=== PATIENT | male | born 1960 | race Caucasian/White ===

== ENCOUNTER 2017-03-18 15:41 | Inpatient (IN) | payer MEDICARE, MEDICAID ==
[2017-03-18] MEDS ORDERED: Albuterol 0.083% 2.5 MG/3 ML Neb Soln NEB PRN (15:55)
[2017-03-18] MEDS ORDERED: oxyCODONE 5 MG Tab PO PRN (15:55)
[2017-03-18] MEDS ORDERED: Polyethylene Glycol 3350 Powder 17 GM Packet PO PRN (15:55)
[2017-03-18] MEDS ORDERED: Ondansetron 4 MG/2 ML SDV IV PRN (15:55)
[2017-03-18] MEDS ORDERED: Acetaminophen 325 MG Tab PO PRN (15:55)
[2017-03-18] MEDS ORDERED: Magnesium Hydroxide 400 MG/5 ML Susp 30 ML Cup PO PRN (15:55)
[2017-03-18] MEDS ORDERED: Docusate Sodium 100 MG Cap PO PRN (15:55)
[2017-03-18] MEDS ORDERED: Sodium Chloride 0.9% 10 ML Syringe FLUSH PRN (15:55)
[2017-03-18] MEDS: Lactated Ringers 1,000 ML IV SCH (17:13)
[2017-03-18] MEDS: Enoxaparin 40 MG/0.4 ML Syringe SUBCUT SCH (17:13)
[2017-03-18] MEDS: Levofloxacin/Dextrose 5%-Water 750 MG in Premix Bag 1 BAG IV SCH (17:13)
[2017-03-18] MEDS ORDERED: Sodium Chloride 0.9% 100 ML IV SCH (17:15)
[2017-03-18] MEDS ORDERED: Iopamidol 755 Mg/ML 100 ML Bottle IV SCH (17:15)
--- NOTE | 2017-03-18 19:32 | PCM.HP ---
H&P History of Present Illness - General Date of Service: 03/18/17 Admit Problem/Dx: Admission Diagnosis/Problem Admission Diagnosis/Problem Pneumonia Source of Information: Patient, Family, Provider, RN Notes Reviewed History Limitations: Reports: No Limitations - History of Present Illness Initial Comments - Free Text/Narative: Mr. Wisdom is a 56-year-old gentleman with ALS, admitted as a direct admission from the clinic with severe hypoxia and hypercapnia and bilateral pneumonia. His ALS his progress to the point where he has developed significant respiratory compromise as well as difficulty with swallowing. He often has often and choking episodes with eating. He's been seen and followed at [facility] in [place], over the past 2 months they've recommended a trial of BiPAP and based on results of the sleep study he qualifies for use of this. He tried the BiPAP while in [place] and did not feel that he would be able to tolerate it. Over the past 2 days his developed significant fluid retention, was seen and evaluated in the urgent care clinic earlier this afternoon. While there was noted to be hypoxic, blood gases were obtained which showed significant hypoxia and hypercapnia. Chest x-ray was obtained which suggested right lung infiltrate. He has been afebrile and his white blood cell count is within normal range. CT scan has been obtained shortly after admission and shows evidence of bilateral pulmonary infiltrates consistent with pneumonia. CT scan showed no evidence of pulmonary emboli or other potential cause of his respiratory compromise. - Related Data Allergies/Adverse Reactions: Allergies Allergy/AdvReac Type Severity Reaction Status Date / Time No Known Allergies Allergy Verified 07/03/16 09:20 Past Medical History HEENT History: Reports: None Cardiovascular History: Reports: None Respiratory History: Reports: None Gastrointestinal History: Reports: None Genitourinary History: Reports: None Musculoskeletal History: Reports: None Neurological History: Reports: Other (See Below) Other Neuro History: ALS Psychiatric History: Reports: None Endocrine/Metabolic History: Reports: None Hematologic History: Reports: None Immunologic History: Reports: None Oncologic (Cancer) History: Reports: None Dermatologic History: Reports: None - Infectious Disease History Infectious Disease History: Reports: None - Past Surgical History Head Surgeries/Procedures: Reports: None Social & Family History - Family History Family Medical History: Noncontributory - Tobacco Use Smoking Status *Q: Current Every Day Smoker Years of Tobacco use: 30 Packs/Tins Daily: 1 Used Tobacco, but Quit: No Second Hand Smoke Exposure: No - Caffeine Use Caffeine Use: Reports: Coffee - Recreational Drug Use Recreational Drug Use: No H&P Review of Systems - Review of Systems: Review Of Systems: See Below General: Reports: Weakness. Denies: Fever, Chills HEENT: Reports: No Symptoms Pulmonary: Denies: Wheezing, Cough, Sputum, Hemoptysis Cardiovascular: Reports: Edema. Denies: Chest Pain, Palpitations, Dyspnea on Exertion, Orthopnea, PND Gastrointestinal: Reports: No Symptoms Genitourinary: Reports: No Symptoms Musculoskeletal: Reports: No Symptoms Skin: Reports: No Symptoms Psychiatric: Reports: No Symptoms Neurological: Reports: No Symptoms Hematologic/Lymphatic: Reports: No Symptoms Immunologic: Reports: No Symptoms Exam - Exam Exam: See Below - Vital Signs Vital Signs: Last Vital Signs Temp 98.4 F 03/18/17 16:11 Pulse 96 03/18/17 16:11 Resp 26 H 03/18/17 16:11 BP 111/83 03/18/17 16:11 Pulse Ox 96 03/18/17 18:07 Weight: 158 lb 12.8 oz - Exam Quality Assessment: Supplemental Oxygen, DVT Prophylaxis General: Alert, Oriented, Cooperative, Mild Distress HEENT: Conjunctiva Clear, Hearing Intact, Mucosa Moist & [place], Normal Nasal Septum, Posterior Pharynx Clear, Pupils Equal Neck: Supple, Trachea Midline, +2 Carotid Pulse wo Bruit Lungs: Decreased Breath Sounds. No: Crackles, Rales, Rhonchi, Wheezing Cardiovascular: Regular Rate, Regular Rhythm, Normal S1, Normal S2. No: Systolic Murmur, Diastolic Murmur GI/Abdominal Exam: Normal Bowel Sounds, Soft, Non-Tender, No Distention Back Exam: Normal Inspection, Full Range of Motion Extremities: Non-Tender, Pedal Edema Skin: Warm, Dry, Intact Neurological: Sensation Intact, Other (Severe weakness secondary to ALS). No: Normal Speech Neuro Extensive - Mental Status: Alert, Oriented x3, Normal Mood/Affect, Normal Cognition, Memory Intact - Patient Data Lab Results Last 24 hrs: Laboratory Results - last 24 hr 03/18/17 03/18/17 Range/Units 16:55 18:00 Puncture Site Rt.radial ABG pH 7.347 L (7.350-7.450) ABG pCO2 73.6 H* (35.0-42.0) mmHg ABG pO2 70.5 L (75.0-100.0) mmHg ABG HCO3 39.4 H (22.0-26.0) mmol/L ABG Total CO2 34.8 H (23.0-27.0) mmol/L ABG O2 Saturation 94.2 L (95.0-98.0) % ABG O2 Content 17.6 (15.0-23.0) %vol ABG Base Excess 10.6 mm/L ABG Hemoglobin 14.6 (13.5-18.0) g/dL ABG Oxyhemoglobin 85.5 % ABG Carboxyhemoglobin 8.4 H (0.0-1.6) % ABG Methemoglobin 0.8 % Jose Guadalupe Test Passed O2 Delivery Device Bipap Sodium 138 L (140-148) mmol/L Potassium 4.5 (3.6-5.2) mmol/L Chloride 100 (100-108) mmol/L Carbon Dioxide 39 H (21-32) mmol/L Anion Gap 3.5 L (5.0-14.0) mmol/L BUN 21 H (7-18) mg/dL Creatinine 0.6 L (0.8-1.3) mg/dL Est Cr Clr Drug Dosing TNP Estimated GFR (MDRD) > 60 (>60) Glucose 92 (74-106) mg/dL Calcium 9.4 (8.5-10.1) mg/dL Result Diagrams: 03/18/17 16:55 Jeanmarie Results Last 24 hrs: Microbiology 03/18/17 15:55 Gram Stain - Final Sputum - Expectorated *Q Meaningful Use (ADM) - VTE *Q VTE Criteria *Q: - VTE Risk Assess *Q Each Risk Factor Represents 1 Point: Age 41 - 59 years, Swollen Legs, Current, Other Risk Factor (ALS) Total Score 1 Point Risk Factors: 3 Each Risk Factor Represents 2 Points: None Total Score 2 Point Risk Factors: 0 Each Risk Factor Represents 3 Points: None Total Score 3 Point Risk Factors: 0 Each Risk Factor Represents 5 Points: None Total Score 5 Point Risk Factors: 0 Venous Thromboembolism Risk Factor Score *Q: 3 - Stroke *Q Stroke Criteria *Q: - AMI *Q AMI Criteria *Q: Problem List Initiated/Reviewed/Updated: Yes Orders Last 24hrs: Active Orders 24 hr Category Date Time Status Patient Status [ADT] Routine ADT 03/18/17 15:55 Active Cardiac Monitoring [RC] .As Directed Care 03/18/17 15:56 Active Intake and Output [RC] QSHIFT Care 03/18/17 15:56 Active Notify Provider Vital Signs [RC] ASDIRECTED Care 03/18/17 15:56 Active Oxygen Therapy [RC] PRN Care 03/18/17 15:55 Active Peripheral IV Care [RC] . DIRECTED Care 03/18/17 15:57 Active Pulse Oximetry [RC] CONTINUOUS Care 03/18/17 15:56 Active RT Aerosol Therapy [RC] ASDIRECTED Care 03/18/17 15:57 Active RT BiPAP/CPAP [RC] ASDIRECTED Care 03/18/17 16:01 Active Up With Assistance [RC] ASDIRECTED Care 03/18/17 15:55 Active VTE/DVT Education [RC] Per Unit Routine Care 03/18/17 15:55 Active Vital Signs [RC] Q4H Care 03/18/17 15:55 Active Regular Diet [DIET] Diet 03/18/17 Lunch Active Ang Chest [CT] Stat Exams 03/18/17 16:01 Taken BLOOD GAS ARTERIAL [BG] Routine Lab 03/19/17 05:00 Ordered CBC WITH AUTO DIFF [HEME] AM Lab 03/19/17 05:11 Ordered COMPREHENSIVE METABOLIC PN,CMP [CHEM] AM Lab 03/19/17 05:11 Ordered CULTURE BLOOD [BC] Stat Lab 03/18/17 16:00 Received CULTURE BLOOD [BC] Stat Lab 03/18/17 16:00 Received CULTURE RESPIRATORY + SMEAR [RM] Stat Lab 03/18/17 15:55 Results Acetaminophen [Tylenol] Med 03/18/17 15:55 Active 650 mg PO Q4H PRN Albuterol [Proventil Neb Soln] Med 03/18/17 15:55 Active 2.5 mg NEB Q4H PRN Albuterol/Ipratropium [DuoNeb 3.0-0.5 MG/3 ML] Med 03/18/17 16:00 Active 3 ml NEB QIDRT Docusate Sodium [Colace] Med 03/18/17 15:55 Active 100 mg PO BID PRN Enoxaparin [Lovenox] Med 03/18/17 16:00 Active 40 mg SUBCUT DAILY Iopamidol [Isovue-370 (76%)] Med 03/18/17 17:15 Active 100 ml IV . DIRECTED LORazepam [Ativan] Med 03/18/17 19:26 Ordered 0.5 mg IVPUSH Q2H PRN Lactated Ringers [Ringers, Lactated] 1,000 ml Med 03/18/17 16:00 Active IV ASDIRECTED Levofloxacin/Dextrose 5%-Water [Levaquin in D5W 750 MG/ Med 03/18/17 16:30 Active 150 ML] 750 mg Premix Bag 1 bag IV Q24H Magnesium Hydroxide [Milk of Magnesia] Med 03/18/17 15:55 Active 30 ml PO Q12H PRN Ondansetron [Zofran] Med 03/18/17 15:55 Active 4 mg IV Q4H PRN Piperacillin/Tazobactam/Dext [Zosyn in Dextrose Iso- Med 03/18/17 18:00 Active Osmotic 3.375 GM] 3.375 gm Premix Bag 1 bag IV Q6H Polyethylene Glycol 3350 [MiraLAX] Med 03/18/17 15:55 Active 17 gm PO DAILY PRN Sodium Chloride 0.9% [Normal Saline] 100 ml Med 03/18/17 17:15 Active IV ASDIRECTED Sodium Chloride 0.9% [Saline Flush] Med 03/18/17 15:55 Active 10 ml FLUSH ASDIRECTED PRN oxyCODONE Med 03/18/17 15:55 Active 5 mg PO Q4H PRN Blood Culture x2 Reflex Set [OM.PC] Stat Oth 03/18/17 15:59 Ordered Peripheral IV Insertion Adult [OM.PC] Routine Oth 03/18/17 15:55 Ordered Resuscitation Status Routine Resus Stat 03/18/17 15:55 Ordered Medication Orders Acetaminophen (Tylenol) 650 mg PO Q4H PRN PRN Reason: Pain (Mild 1-3)/fever Albuterol (Proventil Neb Soln) 2.5 mg NEB Q4H PRN PRN Reason: Shortness Of Breath/wheezing Albuterol/Ipratropium (Duoneb 3.0-0.5 Mg/3 Ml) 3 ml NEB QIDRT [facility] Docusate Sodium (Colace) 100 mg PO BID PRN PRN Reason: Constipation Enoxaparin Sodium (Lovenox) 40 mg SUBCUT DAILY [facility] Last Admin: 03/18/17 17:13 Dose: 40 mg Lactated Ringer's (Ringers, Lactated) 1,000 mls @ 125 mls/hr IV ASDIRECTED [facility] Last Admin: 03/18/17 17:13 Dose: 125 mls/hr Levofloxacin/Dextrose 750 mg/ (Premix) 150 mls @ 100 mls/hr IV Q24H [facility] Last Admin: 03/18/17 17:13 Dose: 100 mls/hr Piperacillin/Tazobactam/ (Dextrose 3.375 gm/ Premix) 50 mls @ 100 mls/hr IV Q6H [facility] Sodium Chloride (Normal Saline) 100 mls @ 3 mls/sec IV ASDIRECTED [facility] Last Admin: 03/18/17 17:37 Dose: 3 mls/sec Iopamidol (Isovue-370 (76%)) 100 ml IV . DIRECTED [facility] Last Admin: 03/18/17 17:36 Dose: 100 ml Lorazepam (Ativan) 0.5 mg IVPUSH Q2H PRN PRN Reason: Anxiety Magnesium Hydroxide (Milk Of Magnesia) 30 ml PO Q12H PRN PRN Reason: Constipation Ondansetron HCl (Zofran) 4 mg IV Q4H PRN PRN Reason: Nausea/Vomiting Oxycodone HCl (Oxycodone) 5 mg PO Q4H PRN PRN Reason: Pain (moderate 4-6) Polyethylene Glycol (Miralax) 17 gm PO DAILY PRN PRN Reason: Constipation Sodium Chloride (Saline Flush) 10 ml FLUSH ASDIRECTED PRN PRN Reason: Keep Vein Open Last Admin: 03/18/17 17:36 Dose: 10 ml Assessment/Plan Comment:: ASSESSMENT AND PLAN BILATERAL PNEUMONIA-possibly secondary to aspiration. His ALS has progressed the point that he is now experiencing some difficulty with swallowing, frequently has coughing while eating. -Blood cultures pending -Expanded IV antibiotic coverage because of respiratory compromise and possible aspiration; Zosyn and levofloxacin -IV fluids for hydration HYPOXIC AND HYPERCAPNIC RESPIRATORY FAILURE-significant degree of this is chronic related to his ALS, possible acute component secondary to bilateral pneumonia -Noninvasive positive pressure ventilation -Nebulizer therapy as needed -Supplemental oxygen, maintain saturations in the range of 90% because of chronic CO2 retention -Repeat blood gases in a.m. FLUID RETENTION WITH PERIPHERAL EDEMA-likely secondary to respiratory compromise as well as current infection -Begin diuretic therapy in a.m. AMYOTROPHIC LATERAL SCLEROSIS-aggressive symptoms with current swallowing difficulty and significant respiratory compromise with hypoventilation -He will accept antibiotics and other interventions at the present time, is not sure if he wants to proceed with BiPAP at home. PALLIATIVE CARE-he would like antibiotic therapy as above and current use of BiPAP, otherwise wishes to be DNR/DNI with no mechanical ventilation or cardiac resuscitation area MAINTENANCE ISSUES -DVT prophylaxis; Lovenox 40 mg subcutaneous daily -GI prophylaxis; not indicated -Calderon catheter; not indicated -Nutrition; regular diet -Nicotine dependence; not required CODE STATUS-DNR/DNI ADMISSION STATUS-patient will be admitted to inpatient status, expect at least a 2 night hospital stay for evaluation and management of problems as outlined above. At the time of this admission I do not reasonably expected evaluation and management of this problem will require more than a 96 hour hospital stay. DISPOSITION-anticipate discharge to home after the hospital stay. PRIMARY CARE PROVIDER-Dr. Weiner
[2017-03-18] MEDS ORDERED: Sodium Chloride 0.9% 100 ML ONE (19:46)
[2017-03-18] MEDS: Albuterol/Ipratropium 3.0-0.5 MG/3 ML Neb Soln NEB SCH ×2 (20:02→21:20)
[2017-03-18] MEDS: Piperacillin/Tazobactam/Dext 3.375 GM in Premix Bag 1 BAG IV SCH (20:08)
[2017-03-18] MEDS: LORazepam 2 MG/ML MDV IVPUSH PRN (22:00)
[2017-03-19] MEDS ORDERED: Sodium Chloride 0.9% 100 ML ONE (01:25)
[2017-03-19] MEDS: Piperacillin/Tazobactam/Dext 3.375 GM in Premix Bag 1 BAG IV SCH ×4 (01:41→17:48)
[2017-03-19] MEDS: Lactated Ringers 1,000 ML IV SCH (02:45)
[2017-03-19] MEDS: Albuterol/Ipratropium 3.0-0.5 MG/3 ML Neb Soln NEB SCH ×4 (07:00→20:59)
--- NOTE | 2017-03-19 10:11 | PCM.PN ---
- General Info Date of Service: 03/19/17 Functional Status: Reports: Pain Controlled, Tolerating Diet, Urinating - Review of Systems General: Reports: Weakness. Denies: Fever, Chills Pulmonary: Reports: No Symptoms Cardiovascular: Reports: No Symptoms Gastrointestinal: Reports: No Symptoms Systems Review Comment:: Mr. Wisdom has been stable since admission yesterday for bilateral pneumonia with acute on chronic hypoxic and hypercapnic respiratory failure. Use of BiPAP overnight has been well tolerated and resulted in a decrease in his PCO2 level. He is more alert and interactive this morning and reports that he is feeling somewhat better. Vital signs have been stable and he has remained afebrile. - Patient Data Vitals - Most Recent: Last Vital Signs Temp 98.6 F 03/19/17 02:00 Pulse 68 03/19/17 07:00 Resp 14 03/19/17 02:00 BP 112/76 03/19/17 02:00 Pulse Ox 96 03/19/17 02:00 Weight - Most Recent: 158 lb 12.783 oz I&O - Last 24 Hours: Intake & Output 03/18/17 03/19/17 03/19/17 22:59 06:59 14:59 Intake Total 600 100 Output Total 350 Balance 250 100 Lab Results Last 24 Hours: Laboratory Results - last 24 hr 03/18/17 03/18/17 03/19/17 Range/Units 16:55 18:00 05:30 WBC 6.7 (4.5-11.0) K/uL RBC 4.84 (4.30-5.90) M/uL Hgb 14.8 (12.0-15.0) g/dL Hct 48.1 (40.0-54.0) % MCV 99 H (80-98) fL MCH 31 (27-31) pg MCHC 31 L (32-36) % Plt Count 144 L (150-400) K/uL Neut % (Auto) 80 H (36-66) % Lymph % (Auto) 12 L (24-44) % [place] % (Auto) 8 H (2-6) % Eos % (Auto) 0 L (2-4) % Baso % (Auto) 0 (0-1) % Puncture Site Rt.radial ABG pH 7.347 L (7.350-7.450) ABG pCO2 73.6 H* (35.0-42.0) mmHg ABG pO2 70.5 L (75.0-100.0) mmHg ABG HCO3 39.4 H (22.0-26.0) mmol/L ABG Total CO2 34.8 H (23.0-27.0) mmol/L ABG O2 Saturation 94.2 L (95.0-98.0) % ABG O2 Content 17.6 (15.0-23.0) %vol ABG Base Excess 10.6 mm/L ABG Hemoglobin 14.6 (13.5-18.0) g/dL ABG Oxyhemoglobin 85.5 % ABG Carboxyhemoglobin 8.4 H (0.0-1.6) % ABG Methemoglobin 0.8 % Jose Guadalupe Test Passed O2 Delivery Device Bipap Oxygen Flow Rate L Sodium 138 L (140-148) mmol/L Potassium 4.5 (3.6-5.2) mmol/L Chloride 100 (100-108) mmol/L Carbon Dioxide 39 H (21-32) mmol/L Anion Gap 3.5 L (5.0-14.0) mmol/L BUN 21 H (7-18) mg/dL Creatinine 0.6 L (0.8-1.3) mg/dL Est Cr Clr Drug Dosing TNP Estimated GFR (MDRD) > 60 (>60) Glucose 92 (74-106) mg/dL Calcium 9.4 (8.5-10.1) mg/dL Total Bilirubin (0.2-1.0) mg/dL AST (15-37) U/L ALT (12-78) U/L Alkaline Phosphatase (46-116) U/L Total Protein (6.4-8.2) g/dL Albumin (3.4-5.0) g/dL Globulin (2.3-3.5) g/dL Albumin/Globulin Ratio (1.2-2.2) 03/19/17 03/19/17 Range/Units 05:30 05:35 WBC (4.5-11.0) K/uL RBC (4.30-5.90) M/uL Hgb (12.0-15.0) g/dL Hct (40.0-54.0) % MCV (80-98) fL MCH (27-31) pg MCHC (32-36) % Plt Count (150-400) K/uL Neut % (Auto) (36-66) % Lymph % (Auto) (24-44) % [place] % (Auto) (2-6) % Eos % (Auto) (2-4) % Baso % (Auto) (0-1) % Puncture Site Rt radial ABG pH 7.377 (7.350-7.450) ABG pCO2 65.7 H (35.0-42.0) mmHg ABG pO2 87.8 (75.0-100.0) mmHg ABG HCO3 37.3 H (22.0-26.0) mmol/L ABG Total CO2 18.9 L (23.0-27.0) mmol/L ABG O2 Saturation 97.2 (95.0-98.0) % ABG O2 Content 18.9 (15.0-23.0) %vol ABG Base Excess 10.0 mm/L ABG Hemoglobin 14.8 (13.5-18.0) g/dL ABG Oxyhemoglobin 90.4 % ABG Carboxyhemoglobin 6.3 H (0.0-1.6) % ABG Methemoglobin 0.7 % Jose Guadalupe Test Passed O2 Delivery Device Bipap Oxygen Flow Rate L Sodium 140 (140-148) mmol/L Potassium 4.6 (3.6-5.2) mmol/L Chloride 100 (100-108) mmol/L Carbon Dioxide 39 H (21-32) mmol/L Anion Gap 5.6 (5.0-14.0) mmol/L BUN 16 (7-18) mg/dL Creatinine 0.6 L (0.8-1.3) mg/dL Est Cr Clr Drug Dosing 129.83 Estimated GFR (MDRD) > 60 (>60) Glucose 96 (74-106) mg/dL Calcium 8.0 L (8.5-10.1) mg/dL Total Bilirubin 0.5 (0.2-1.0) mg/dL AST 55 H (15-37) U/L ALT 37 (12-78) U/L Alkaline Phosphatase 42 L (46-116) U/L Total Protein 5.5 L (6.4-8.2) g/dL Albumin 2.6 L (3.4-5.0) g/dL Globulin 2.9 (2.3-3.5) g/dL Albumin/Globulin Ratio 0.9 L (1.2-2.2) Jeanmarie Results Last 24 Hours: Microbiology 03/18/17 15:55 Gram Stain - Final Sputum - Expectorated Med Orders - Current: Current Medications Acetaminophen (Tylenol) 650 mg PO Q4H PRN PRN Reason: Pain (Mild 1-3)/fever Albuterol (Proventil Neb Soln) 2.5 mg NEB Q4H PRN PRN Reason: Shortness Of Breath/wheezing Albuterol/Ipratropium (Duoneb 3.0-0.5 Mg/3 Ml) 3 ml NEB QIDRT [facility] Last Admin: 03/19/17 07:00 Dose: 3 ml Docusate Sodium (Colace) 100 mg PO BID PRN PRN Reason: Constipation Enoxaparin Sodium (Lovenox) 40 mg SUBCUT DAILY [facility] Last Admin: 03/18/17 17:13 Dose: 40 mg Furosemide (Lasix) 20 mg IVPUSH NOW ONE Stop: 03/19/17 10:07 Levofloxacin/Dextrose 750 mg/ (Premix) 150 mls @ 100 mls/hr IV Q24H [facility] Last Admin: 03/18/17 17:13 Dose: 100 mls/hr Piperacillin/Tazobactam/ (Dextrose 3.375 gm/ Premix) 50 mls @ 100 mls/hr IV Q6H [facility] Last Admin: 03/19/17 06:30 Dose: 100 mls/hr Sodium Chloride (Normal Saline) 100 mls @ 3 mls/sec IV ASDIRECTED [facility] Last Admin: 03/18/17 17:37 Dose: 3 mls/sec Iopamidol (Isovue-370 (76%)) 100 ml IV . DIRECTED [facility] Last Admin: 03/18/17 17:36 Dose: 100 ml Lorazepam (Ativan) 0.5 mg IVPUSH Q2H PRN PRN Reason: Anxiety Last Admin: 03/18/17 22:00 Dose: 0.5 mg Magnesium Hydroxide (Milk Of Magnesia) 30 ml PO Q12H PRN PRN Reason: Constipation Ondansetron HCl (Zofran) 4 mg IV Q4H PRN PRN Reason: Nausea/Vomiting Oxycodone HCl (Oxycodone) 5 mg PO Q4H PRN PRN Reason: Pain (moderate 4-6) Polyethylene Glycol (Miralax) 17 gm PO DAILY PRN PRN Reason: Constipation Sodium Chloride (Saline Flush) 10 ml FLUSH ASDIRECTED PRN PRN Reason: Keep Vein Open Last Admin: 03/18/17 17:36 Dose: 10 ml Discontinued Medications Lactated Ringer's (Ringers, Lactated) 1,000 mls @ 125 mls/hr IV ASDIRECTED [facility] Last Admin: 03/19/17 02:45 Dose: 125 mls/hr Sodium Chloride (Normal Saline) Confirm Administered Dose 100 mls @ as directed .ROUTE .STK-MED ONE Stop: 03/18/17 19:47 Last Admin: 03/18/17 20:08 Dose: 100 ml Sodium Chloride (Normal Saline) Confirm Administered Dose 100 mls @ as directed .ROUTE .STK-MED ONE Stop: 03/19/17 01:26 Last Admin: 03/19/17 01:39 Dose: 100 ml - Exam Quality Assessment: Supplemental Oxygen, DVT Prophylaxis General: Alert, Oriented, Cooperative, No Acute Distress Lungs: Clear to Auscultation, Normal Respiratory Effort Cardiovascular: Regular Rate, Regular Rhythm, No Murmurs GI/Abdominal Exam: Normal Bowel Sounds, Soft, Non-Tender, No Distention Extremities: Pedal Edema Skin: Warm, Dry, Intact - Problem List Review Problem List Initiated/Reviewed/Updated: Yes - My Orders Last 24 Hours: My Active Orders 03/18/17 15:55 Patient Status [ADT] Routine Oxygen Therapy [RC] PRN Up With Assistance [RC] ASDIRECTED VTE/DVT Education [RC] Per Unit Routine Vital Signs [RC] Q2H CULTURE RESPIRATORY + SMEAR [RM] Stat Acetaminophen [Tylenol] 650 mg PO Q4H PRN Albuterol [Proventil Neb Soln] 2.5 mg NEB Q4H PRN Docusate Sodium [Colace] 100 mg PO BID PRN Magnesium Hydroxide [Milk of Magnesia] 30 ml PO Q12H PRN Ondansetron [Zofran] 4 mg IV Q4H PRN Polyethylene Glycol 3350 [MiraLAX] 17 gm PO DAILY PRN Sodium Chloride 0.9% [Saline Flush] 10 ml FLUSH ASDIRECTED PRN oxyCODONE 5 mg PO Q4H PRN Peripheral IV Insertion Adult [OM.PC] Routine Resuscitation Status Routine 03/18/17 15:56 Cardiac Monitoring [RC] Q6H Intake and Output [RC] QSHIFT Notify Provider Vital Signs [RC] ASDIRECTED Pulse Oximetry [RC] CONTINUOUS 03/18/17 15:57 Peripheral IV Care [RC] . DIRECTED RT Aerosol Therapy [RC] ASDIRECTED 03/18/17 15:59 Blood Culture x2 Reflex Set [OM.PC] Stat 03/18/17 16:00 CULTURE BLOOD [BC] Stat CULTURE BLOOD [BC] Stat Albuterol/Ipratropium [DuoNeb 3.0-0.5 MG/3 ML] 3 ml NEB QIDRT Enoxaparin [Lovenox] 40 mg SUBCUT DAILY 03/18/17 16:01 RT BiPAP/CPAP [RC] ASDIRECTED Ang Chest [CT] Stat 03/18/17 16:30 Levofloxacin/Dextrose 5%-Water [Levaquin in D5W 750 MG/150 ML] 750 mg Premix Bag 1 bag IV Q24H 03/18/17 17:15 Iopamidol [Isovue-370 (76%)] 100 ml IV . DIRECTED Sodium Chloride 0.9% [Normal Saline] 100 ml IV ASDIRECTED 03/18/17 18:00 Piperacillin/Tazobactam/Dext [Zosyn in Dextrose Iso-Osmotic 3.375 GM] 3.375 gm Premix Bag 1 bag IV Q6H 03/18/17 19:26 LORazepam [Ativan] 0.5 mg IVPUSH Q2H PRN 03/18/17 Lunch Regular Diet [DIET] 03/19/17 10:05 Convert IV to Saline Lock [OM.PC] Routine 03/19/17 10:06 Furosemide [Lasix] 20 mg IVPUSH NOW ONE 03/20/17 05:00 BASIC METABOLIC PANEL,BMP [CHEM] Timed BLOOD GAS ARTERIAL [BG] Timed - Plan Plan:: ASSESSMENT AND PLAN BILATERAL PNEUMONIA-possibly secondary to aspiration. His ALS has progressed the point that he is now experiencing some difficulty with swallowing, frequently has coughing after eating. -Blood cultures pending -Expanded IV antibiotic coverage because of respiratory compromise and possible aspiration; Zosyn and levofloxacin -Saline lock IV HYPOXIC AND HYPERCAPNIC RESPIRATORY FAILURE-significant degree of this is chronic related to his ALS, possible acute component secondary to bilateral pneumonia -Noninvasive positive pressure ventilation -Nebulizer therapy as needed -Supplemental oxygen, maintain saturations in the range of 90% because of chronic CO2 retention -Repeat blood gases in a.m. FLUID RETENTION WITH PERIPHERAL EDEMA-likely secondary to respiratory compromise as well as current infection -Saline lock IV -Furosemide 20 mg IV now AMYOTROPHIC LATERAL SCLEROSIS-aggressive symptoms with current swallowing difficulty and significant respiratory compromise with hypoventilation -He will accept antibiotics and other interventions at the present time, is not sure if he wants to proceed with BiPAP at home. PALLIATIVE CARE-he would like antibiotic therapy as above and current use of BiPAP, otherwise wishes to be DNR/DNI with no mechanical ventilation or cardiac resuscitation area MAINTENANCE ISSUES -DVT prophylaxis; Lovenox 40 mg subcutaneous daily -GI prophylaxis; not indicated -Calderon catheter; not indicated -Nutrition; regular diet -Nicotine dependence; not required CODE STATUS-DNR/DNI ADMISSION STATUS-patient will be admitted to inpatient status, expect at least a 2 night hospital stay for evaluation and management of problems as outlined above. At the time of this admission I do not reasonably expected evaluation and management of this problem will require more than a 96 hour hospital stay. DISPOSITION-anticipate discharge to home after the hospital stay. PRIMARY CARE PROVIDER-Dr. Weiner
[2017-03-19] MEDS ORDERED: Furosemide 20 MG/2 ML VIAL IVPUSH ONE (10:30)
[2017-03-19] MEDS: Enoxaparin 40 MG/0.4 ML Syringe SUBCUT SCH (11:20)
[2017-03-19] MEDS: Levofloxacin/Dextrose 5%-Water 750 MG in Premix Bag 1 BAG IV SCH (16:24)
[2017-03-20] MEDS: Piperacillin/Tazobactam/Dext 3.375 GM in Premix Bag 1 BAG IV SCH ×3 (00:17→11:20)
[2017-03-20] MEDS: Albuterol/Ipratropium 3.0-0.5 MG/3 ML Neb Soln NEB SCH ×4 (07:23→21:42)
[2017-03-20] MEDS: Enoxaparin 40 MG/0.4 ML Syringe SUBCUT SCH (11:18)
[2017-03-20] MEDS ORDERED: Furosemide 20 MG/2 ML VIAL IV ONE (15:15)
--- NOTE | 2017-03-20 15:15 | PCM.PN ---
- General Info Date of Service: 03/20/17 Functional Status: Reports: Tolerating Diet, Urinating - Review of Systems General: Reports: Weakness. Denies: Fever, Chills Pulmonary: Reports: No Symptoms Cardiovascular: Reports: No Symptoms Gastrointestinal: Reports: No Symptoms Systems Review Comment:: This patient has remained stable since yesterday, CO2 level was into the 70s this morning despite use of BiPAP through the night. Vital signs have been stable and he has remained afebrile. Peripheral edema improved with diuresis. - Patient Data Vitals - Most Recent: Last Vital Signs Temp 98.9 F 03/20/17 14:00 Pulse 75 03/20/17 14:36 Resp 21 H 03/20/17 14:00 BP 112/39 L 03/20/17 14:00 Pulse Ox 97 03/20/17 14:00 Weight - Most Recent: 158 lb 12.783 oz I&O - Last 24 Hours: Intake & Output 03/20/17 03/20/17 03/20/17 06:59 14:59 22:59 Intake Total 50 50 Output Total 650 Balance -600 50 Lab Results Last 24 Hours: Laboratory Results - last 24 hr 03/20/17 03/20/17 Range/Units 05:00 05:45 Puncture Site Rt radial ABG pH 7.348 L (7.350-7.450) ABG pCO2 71.4 H* (35.0-42.0) mmHg ABG pO2 149.0 H (75.0-100.0) mmHg ABG HCO3 38.2 H (22.0-26.0) mmol/L ABG Total CO2 33.8 H (23.0-27.0) mmol/L ABG O2 Saturation 99.0 H (95.0-98.0) % ABG O2 Content 19.6 (15.0-23.0) %vol ABG Base Excess 9.7 mm/L ABG Hemoglobin 14.6 (13.5-18.0) g/dL ABG Oxyhemoglobin 94.6 % ABG Carboxyhemoglobin 3.5 H (0.0-1.6) % ABG Methemoglobin 0.9 % Jose Guadalupe Test Passed O2 Delivery Device Bipap Sodium 141 (140-148) mmol/L Potassium 4.2 (3.6-5.2) mmol/L Chloride 102 (100-108) mmol/L Carbon Dioxide 41 H (21-32) mmol/L Anion Gap 2.2 L (5.0-14.0) mmol/L BUN 12 (7-18) mg/dL Creatinine 0.7 L (0.8-1.3) mg/dL Est Cr Clr Drug Dosing 111.70 mL/min Estimated GFR (MDRD) > 60 (>60) Glucose 104 (74-106) mg/dL Calcium 8.0 L (8.5-10.1) mg/dL Jeanmarie Results Last 24 Hours: Microbiology 03/18/17 15:55 Gram Stain - Final Sputum - Expectorated Respiratory Culture - Preliminary NORMAL RESPIRATORY AILYN 1 DAY 03/18/17 16:00 Aerobic Blood Culture - Preliminary Blood - Venous - Lab Draw NO GROWTH AFTER 1 DAY Anaerobic Blood Culture - Preliminary NO GROWTH AFTER 1 DAY 03/18/17 16:00 Aerobic Blood Culture - Preliminary Blood - Arm, Left NO GROWTH AFTER 1 DAY Anaerobic Blood Culture - Preliminary NO GROWTH AFTER 1 DAY Med Orders - Current: Current Medications Acetaminophen (Tylenol) 650 mg PO Q4H PRN PRN Reason: Pain (Mild 1-3)/fever Albuterol (Proventil Neb Soln) 2.5 mg NEB Q4H PRN PRN Reason: Shortness Of Breath/wheezing Albuterol/Ipratropium (Duoneb 3.0-0.5 Mg/3 Ml) 3 ml NEB QIDRT [facility] Last Admin: 03/20/17 14:36 Dose: 3 ml Docusate Sodium (Colace) 100 mg PO BID PRN PRN Reason: Constipation Enoxaparin Sodium (Lovenox) 40 mg SUBCUT DAILY [facility] Last Admin: 03/20/17 11:18 Dose: 40 mg Furosemide (Lasix) 20 mg IV ONETIME ONE Stop: 03/20/17 15:16 Levofloxacin/Dextrose 750 mg/ (Premix) 150 mls @ 100 mls/hr IV Q24H [facility] Last Admin: 03/19/17 16:24 Dose: 100 mls/hr Piperacillin/Tazobactam/ (Dextrose 3.375 gm/ Premix) 50 mls @ 100 mls/hr IV Q6H [facility] Last Admin: 03/20/17 11:20 Dose: 100 mls/hr Lorazepam (Ativan) 0.5 mg IVPUSH Q2H PRN PRN Reason: Anxiety Last Admin: 03/18/17 22:00 Dose: 0.5 mg Magnesium Hydroxide (Milk Of Magnesia) 30 ml PO Q12H PRN PRN Reason: Constipation Ondansetron HCl (Zofran) 4 mg IV Q4H PRN PRN Reason: Nausea/Vomiting Oxycodone HCl (Oxycodone) 5 mg PO Q4H PRN PRN Reason: Pain (moderate 4-6) Polyethylene Glycol (Miralax) 17 gm PO DAILY PRN PRN Reason: Constipation Sodium Chloride (Saline Flush) 10 ml FLUSH ASDIRECTED PRN PRN Reason: Keep Vein Open Last Admin: 03/18/17 17:36 Dose: 10 ml Discontinued Medications Furosemide (Lasix) 20 mg IVPUSH NOW ONE Stop: 03/19/17 10:31 Last Admin: 03/19/17 11:20 Dose: 20 mg Lactated Ringer's (Ringers, Lactated) 1,000 mls @ 125 mls/hr IV ASDIRECTED [facility] Last Admin: 03/19/17 02:45 Dose: 125 mls/hr Sodium Chloride (Normal Saline) 100 mls @ 3 mls/sec IV ASDIRECTED [facility] Last Admin: 03/18/17 17:37 Dose: 3 mls/sec Sodium Chloride (Normal Saline) Confirm Administered Dose 100 mls @ as directed .ROUTE .[facility] ONE Stop: 03/18/17 19:47 Last Admin: 03/18/17 20:08 Dose: 100 ml Sodium Chloride (Normal Saline) Confirm Administered Dose 100 mls @ as directed .ROUTE .[facility] ONE Stop: 03/19/17 01:26 Last Admin: 03/19/17 01:39 Dose: 100 ml Iopamidol (Isovue-370 (76%)) 100 ml IV . DIRECTED [facility] Last Admin: 03/18/17 17:36 Dose: 100 ml - Exam Quality Assessment: Supplemental Oxygen, DVT Prophylaxis General: Alert, Oriented, Cooperative, No Acute Distress Lungs: Clear to Auscultation, Normal Respiratory Effort Cardiovascular: Regular Rate, Regular Rhythm, No Murmurs GI/Abdominal Exam: Normal Bowel Sounds, Soft, Non-Tender, No Distention Back Exam: Normal Inspection, Full Range of Motion Extremities: Normal Inspection, Normal Range of Motion, Pedal Edema Skin: Warm, Dry, Intact - Problem List Review Problem List Initiated/Reviewed/Updated: Yes - My Orders Last 24 Hours: My Active Orders 03/20/17 15:10 Furosemide [Lasix] 20 mg IVPUSH NOW ONE - Plan Plan:: ASSESSMENT AND PLAN BILATERAL PNEUMONIA-possibly secondary to aspiration. His ALS has progressed the point that he is now experiencing some difficulty with swallowing, frequently has coughing after eating. -Cultures are all negative thus far, discontinue Zosyn -Continue levofloxacin Ammann transitioned to oral tomorrow -Saline lock IV HYPOXIC AND HYPERCAPNIC RESPIRATORY FAILURE-significant degree of this is chronic related to his ALS, persistent CO2 retention despite current management -Noninvasive positive pressure ventilation -Nebulizer therapy as needed -Supplemental oxygen, maintain saturations in the range of 90% because of chronic CO2 retention -Repeat blood gases in a.m. FLUID RETENTION WITH PERIPHERAL EDEMA-likely secondary to respiratory compromise as well as current infection -Saline lock IV -Furosemide 20 mg IV now AMYOTROPHIC LATERAL SCLEROSIS-aggressive symptoms with current swallowing difficulty and significant respiratory compromise with hypoventilation -He will accept antibiotics and other interventions at the present time, and does want to try use of BiPAP at home PALLIATIVE CARE-he would like antibiotic therapy as above and current use of BiPAP, otherwise wishes to be DNR/DNI with no mechanical ventilation or cardiac resuscitation area MAINTENANCE ISSUES -DVT prophylaxis; Lovenox 40 mg subcutaneous daily -GI prophylaxis; not indicated -Calderon catheter; not indicated -Nutrition; regular diet -Nicotine dependence; not required CODE STATUS-DNR/DNI ADMISSION STATUS-patient will be admitted to inpatient status, expect at least a 2 night hospital stay for evaluation and management of problems as outlined above. At the time of this admission I do not reasonably expected evaluation and management of this problem will require more than a 96 hour hospital stay. DISPOSITION-anticipate discharge to home after the hospital stay. PRIMARY CARE PROVIDER-Dr. Weiner
[2017-03-20] MEDS: Levofloxacin/Dextrose 5%-Water 750 MG in Premix Bag 1 BAG IV SCH (16:05)
[2017-03-20] MEDS: LORazepam 2 MG/ML MDV IVPUSH PRN (23:28)
[2017-03-21] MEDS: Albuterol/Ipratropium 3.0-0.5 MG/3 ML Neb Soln NEB SCH ×3 (07:32→14:52)
[2017-03-21] MEDS: Enoxaparin 40 MG/0.4 ML Syringe SUBCUT SCH (08:53)
--- NOTE | 2017-03-21 10:30 | PCM.DCSUM1 ---
Discharge Summary - Hospital Course Brief History: Mr. Wisdom is a 56-year-old gentleman who is admitted as a direct admission from the clinic with bilateral aspiration pneumonia as well as acute on chronic hypoxic and hypercapnic respiratory failure secondary to the pneumonia and ALS. - Discharge Data Discharge Date: 03/21/17 Discharge Disposition: Home, [facility] Condition: Stable - Discharge Diagnosis/Problem(s) (1) Amyotrophic lateral sclerosis (ALS) SNOMED Code(s): 17367974, 82058849 ICD Code: G12.21 - AMYOTROPHIC LATERAL SCLEROSIS Status: Acute Current Visit: Yes (2) Aspiration pneumonia SNOMED Code(s): 939881470 ICD Code: J69.0 - PNEUMONITIS DUE TO INHALATION OF FOOD AND VOMIT Status: Acute Current Visit: Yes (3) Acute on chronic respiratory failure with hypoxia and hypercapnia SNOMED Code(s): 45557196, 386584821 ICD Code: J96.21 - ACUTE AND CHRONIC RESPIRATORY FAILURE WITH HYPOXIA; J96.22 - ACUTE AND CHRONIC RESPIRATORY FAILURE WITH HYPERCAPNIA Status: Acute Current Visit: Yes (4) Palliative care status SNOMED Code(s): 777848796 ICD Code: Z51.5 - ENCOUNTER FOR PALLIATIVE CARE Status: Acute Current Visit: Yes - Patient Summary/Data Hospital Course: Mr. Wisdom is a 56-year-old gentleman with a known history of amyotrophic lateral sclerosis present over the past 3 years. He has progressed to the point where he's developed chronic respiratory compromise with hypoxia and hypercapnia secondary to hypoventilation. He is also developed some difficulty with swallowing and often has coughing with and after eating. He was seen and evaluated the clinic because of increased peripheral edema. At the time of that evaluation was noted to have significant hypoxia with oxygen saturation on room air in the low 70s. Arterial blood gases were obtained and showed significant hypoxia and hypercapnia. Chest x-ray obtained at the clinic suggested bilateral pulmonary infiltrates. He was admitted to the hospital as a direct admission from the clinic, because of significant elevation in d-dimer CT scan of the chest with PE protocol was obtained, showed no evidence of pulmonary embolism but did document bilateral infiltrates consistent with pneumonia and aspiration. He was given IV fluids for hydration and started on BiPAP for respiratory support. He was given supplemental oxygen and the goal was to maintain saturations in the range of 90% because of the hypercapnia. Blood cultures were obtained and remained negative throughout his hospital stay. He was placed on broad-spectrum IV antibiotics because of his significant respiratory compromise and evidence of aspiration. Antibiotics included Zosyn and levofloxacin. Cultures including sputum cultures remain negative through the hospital stay. He did improve modestly from a respiratory standpoint with supplemental oxygen and BiPAP. He is already been seen and evaluated in [place] concerning his respiratory compromise and has been qualified for use of home BiPAP, based on previous sleep study and evaluation. He will be discharged home with supplemental oxygen, given the goal will be to maintain oxygen saturations in the range of 90%. BiPAP will also be ordered at the time of discharge for ongoing management of his chronic hypoxic and hypercapnic respiratory failure secondary to ALS. Oxygen saturation on room air prior to discharge was 85%. He was noted to have significant fluid retention during hospital stay and was treated with IV furosemide with good result in decrease in edema. He will be discharged home on oral furosemide and oral potassium supplementation as needed. We discussed ongoing management of his progressively worsening ALS, he was given information concerning advance directive and also was seen by the hospice team for an informational visit. He is not yet ready to proceed with comfort cares only and hospice admission but understands that he will likely require this in the relatively near future. Will be discharged home on oral antibiotic therapy with levofloxacin for an additional 5 days. Lorazepam will be prescribed for anxiety as needed with use of the BiPAP. Hospital bed will be ordered for him at the time of discharge, Fuentes needs the head of his bed to be elevated more than 30 and he requires positioning of the body in ways not feasible with an ordinary bed. He will also be discharged with order for a wheelchair, Fuentes has developed severe weakness secondary to his ALS and requires a wheelchair to complete his activities of daily living, he has progressed to the point that a cane or walker will not work for mobility. Activity will be as tolerated and he will be on a soft diet. Follow-up appointment will be scheduled with his primary care provider within one week. Home care will be arranged for follow-up at home including home physical therapy and occupational therapy. - Patient Instructions Diet: Mechanical Soft Activity: As Tolerated Other/Special Instructions: Schedule follow-up appointment with Dr. Weiner within one week. Home care to be arranged at the time of discharge with home physical therapy and home occupational therapy. Patient will require home BiPAP as well as home oxygen. Arrange for hospital bed and wheelchair with seat and back cushions. - Discharge Plan Prescriptions/Med Rec: Furosemide [Lasix] 20 mg PO DAILY PRN #30 tab PRN Reason: Edema Levofloxacin [Levaquin] 500 mg PO Q24H #5 tablet LORazepam 0.5 mg PO Q4H PRN #30 tablet PRN Reason: Anxiety Potassium Chloride 20 meq PO DAILY PRN #500 ml PRN Reason: Edema Home Medications: Home Meds Furosemide [Lasix] 20 mg PO DAILY PRN #30 tab 03/21/17 [Rx] LORazepam 0.5 mg PO Q4H PRN #30 tablet 03/21/17 [Rx] Levofloxacin [Levaquin] 500 mg PO Q24H #5 tablet 03/21/17 [Rx] Potassium Chloride 20 meq PO DAILY PRN #500 ml 03/21/17 [Rx] - Patient Data Vitals - Most Recent: Last Vital Signs Temp 97 F 03/21/17 07:41 Pulse 70 03/21/17 07:41 Resp 16 03/21/17 07:41 BP 115/65 03/21/17 07:41 Pulse Ox 92 L 03/21/17 07:41 Weight - Most Recent: 158 lb 12.783 oz I&O - Last 24 hours: Intake & Output 03/20/17 03/21/17 03/21/17 22:59 06:59 14:59 Intake Total 100 100 Output Total 1350 Balance -1250 100 MARTÍNEZ Results - Last 24 hrs: Microbiology 03/18/17 15:55 Gram Stain - Final Sputum - Expectorated Respiratory Culture - Preliminary NORMAL RESPIRATORY AILYN 2 DAYS 03/18/17 16:00 Aerobic Blood Culture - Preliminary Blood - Venous - Lab Draw NO GROWTH AFTER 2 DAYS Anaerobic Blood Culture - Preliminary NO GROWTH AFTER 2 DAYS 03/18/17 16:00 Aerobic Blood Culture - Preliminary Blood - Arm, Left NO GROWTH AFTER 2 DAYS Anaerobic Blood Culture - Preliminary NO GROWTH AFTER 2 DAYS Med Orders - Current: Current Medications Acetaminophen (Tylenol) 650 mg PO Q4H PRN PRN Reason: Pain (Mild 1-3)/fever Albuterol (Proventil Neb Soln) 2.5 mg NEB Q4H PRN PRN Reason: Shortness Of Breath/wheezing Albuterol/Ipratropium (Duoneb 3.0-0.5 Mg/3 Ml) 3 ml NEB QIDRT [facility] Last Admin: 03/21/17 07:32 Dose: 3 ml Docusate Sodium (Colace) 100 mg PO BID PRN PRN Reason: Constipation Enoxaparin Sodium (Lovenox) 40 mg SUBCUT DAILY [facility] Last Admin: 03/21/17 08:53 Dose: 40 mg Levofloxacin/Dextrose 750 mg/ (Premix) 150 mls @ 100 mls/hr IV Q24H [facility] Last Admin: 03/20/17 16:05 Dose: 100 mls/hr Lorazepam (Ativan) 0.5 mg IVPUSH Q2H PRN PRN Reason: Anxiety Last Admin: 03/20/17 23:28 Dose: 0.5 mg Magnesium Hydroxide (Milk Of Magnesia) 30 ml PO Q12H PRN PRN Reason: Constipation Ondansetron HCl (Zofran) 4 mg IV Q4H PRN PRN Reason: Nausea/Vomiting Oxycodone HCl (Oxycodone) 5 mg PO Q4H PRN PRN Reason: Pain (moderate 4-6) Polyethylene Glycol (Miralax) 17 gm PO DAILY PRN PRN Reason: Constipation Sodium Chloride (Saline Flush) 10 ml FLUSH ASDIRECTED PRN PRN Reason: Keep Vein Open Last Admin: 03/18/17 17:36 Dose: 10 ml Discontinued Medications Furosemide (Lasix) 20 mg IVPUSH NOW ONE Stop: 03/19/17 10:31 Last Admin: 03/19/17 11:20 Dose: 20 mg Furosemide (Lasix) 20 mg IV ONETIME ONE Stop: 03/20/17 15:16 Last Admin: 03/20/17 16:05 Dose: 20 mg Lactated Ringer's (Ringers, Lactated) 1,000 mls @ 125 mls/hr IV ASDIRECTED [facility] Last Admin: 03/19/17 02:45 Dose: 125 mls/hr Piperacillin/Tazobactam/ (Dextrose 3.375 gm/ Premix) 50 mls @ 100 mls/hr IV Q6H [facility] Last Admin: 03/20/17 11:20 Dose: 100 mls/hr Sodium Chloride (Normal Saline) 100 mls @ 3 mls/sec IV ASDIRECTED [facility] Last Admin: 03/18/17 17:37 Dose: 3 mls/sec Sodium Chloride (Normal Saline) Confirm Administered Dose 100 mls @ as directed .ROUTE .[facility] ONE Stop: 03/18/17 19:47 Last Admin: 03/18/17 20:08 Dose: 100 ml Sodium Chloride (Normal Saline) Confirm Administered Dose 100 mls @ as directed .ROUTE .[facility] ONE Stop: 03/19/17 01:26 Last Admin: 03/19/17 01:39 Dose: 100 ml Iopamidol (Isovue-370 (76%)) 100 ml IV . DIRECTED [facility] Last Admin: 03/18/17 17:36 Dose: 100 ml *Q Meaningful Use (DIS) - VTE *Q VTE Criteria *Q: - Stroke *Q Stroke Criteria *Q: - AMI *Q AMI Criteria *Q:
[2017-03-21 12:54] VITALS: BP 110/56
== END 2017-03-21 15:15 | disposition home health service (06) | DRG 177 ==
LOC: JP.ICU 15:41
PROVIDERS: ADMIT Hospitalist; ATTEND Hospitalist
DX: J69.0 Pneumonitis due to inhalation of food and vomit (principal); J96.21 Acute and chronic respiratory failure with hypoxia; J96.22 Acute and chronic respiratory failure with hypercapnia; G12.21 Amyotrophic lateral sclerosis; F17.210 Nicotine dependence, cigarettes, uncomplicated; R13.10 Dysphagia, unspecified; Z66 Do not resuscitate; R60.9 Edema, unspecified; R74.8 Abnormal levels of other serum enzymes; Z99.81 Dependence on supplemental oxygen; F41.9 Anxiety disorder, unspecified; Z99.3 Dependence on wheelchair
CPT/HCPCS: 36415; 36600; 71275; 80048; 80053; 82803; 85025; 87040; 87070; 87205; 94640-76; 94660; J1650; J1940; J1956; J2060; J2543; J7030; J7050; J7120; J7620; Q9967

== ENCOUNTER 2017-11-28 11:41 | Inpatient (IN) | payer MEDICARE, MEDICAID ==
[2017-11-28] MEDS ORDERED: Albuterol 0.083% 2.5 MG/3 ML Neb Soln NEB ONE (13:09)
[2017-11-28] MEDS ORDERED: Sodium Chloride 0.9% 10 ML Syringe FLUSH ONE (13:11)
--- NOTE | 2017-11-28 13:12 | EDM.PDOC ---
ED HPI GENERAL MEDICAL PROBLEM - General Chief Complaint: Respiratory Problem Stated Complaint: COUGHING Time Seen by Provider: 11/28/17 11:55 Source of Information: Reports: Patient History Limitations: Reports: No Limitations - History of Present Illness INITIAL COMMENTS - FREE TEXT/NARRATIVE: pt arrived with a feeling that he has something caught in his trachae. He did not choke when he te this am. He has not been able to bring this up. He states at times he raises thick chunks. Onset: Gradual Duration: Hour(s):, Other (pt does deal with this alot but this seemes more severe. ) Location: Reports: Chest Associated Symptoms: Reports: Cough, Other ( He has the feeling that something is caught in his trachae.) - Related Data Allergies Allergy/AdvReac Type Severity Reaction Status Date / Time No Known Allergies Allergy Verified 11/28/17 11:59 Home Meds: Home Meds LORazepam [LORazepam Intensol] 2.5 ml PO Q8H PRN 11/28/17 [History] Scopolamine [Transderm-Scop] 1 patch TOP Q72H 11/28/17 [History] Triamcinolone Acetonide [Triamcinolone Acetonide 0.1% Crm] 1 g TOP ASDIRECTED [History] Past Medical History HEENT History: Reports: None Cardiovascular History: Reports: None Respiratory History: Reports: None, Sleep Apnea, Other (See Below) Other Respiratory History: Pneumonia, respsiratory failure Gastrointestinal History: Reports: None Genitourinary History: Reports: None Musculoskeletal History: Reports: None Neurological History: Reports: Other (See Below) Other Neuro History: ALS Psychiatric History: Reports: Anxiety Endocrine/Metabolic History: Reports: None Hematologic History: Reports: None Immunologic History: Reports: None Oncologic (Cancer) History: Reports: None Dermatologic History: Reports: None, Decubitus Ulcer Other Dermatologic History: See Es JOLLY for coccyx wound - Infectious Disease History Infectious Disease History: Reports: None - Past Surgical History Head Surgeries/Procedures: Reports: None Social & Family History - Family History Family Medical History: Noncontributory - Tobacco Use Smoking Status *Q: Former Smoker Years of Tobacco use: 30 Packs/Tins Daily: 1 Used Tobacco, but Quit: No Second Hand Smoke Exposure: No - Caffeine Use Caffeine Use: Reports: Coffee - Recreational Drug Use Recreational Drug Use: No ED ROS GENERAL - Review of Systems Review Of Systems: See Below Constitutional: Reports: No Symptoms HEENT: Reports: Other (mucous problems. ) Respiratory: Reports: Shortness of Breath, Other ( mucous in the trachae.) Cardiovascular: Reports: Palpitations Endocrine: Reports: No Symptoms GI/Abdominal: Reports: No Symptoms : Reports: No Symptoms Musculoskeletal: Reports: Other (pt has very weak resp muscles) Skin: Reports: No Symptoms ED EXAM, GENERAL - Physical Exam Exam: See Below Free Text/Narrative:: pt arrived with the feeling that he hd a mucous plug in the trachae. He had not choked at home. Exam Limited By: No Limitations General Appearance: Alert, Mild Distress, Other (pt hd good o2 sats. ) Ears: Normal TMs Nose: Normal Inspection Throat/Mouth: Normal Inspection Head: Atraumatic Neck: Normal Inspection Respiratory/Chest: Other (pt is oxgenating well but she has alot of mucous in the trachae that he is not able to move. ) Cardiovascular: Regular Rate, Rhythm GI/Abdominal: Soft, Non-Tender (Male) Exam: Deferred Rectal (Males) Exam: Deferred Extremities: Normal Inspection Neurological: Alert, Oriented, Normal Cognition Course - Vital Signs Last Recorded V/S: Last Vital Signs Temp 36.5 C 11/28/17 11:56 Pulse 85 11/28/17 11:56 Resp 20 11/28/17 11:56 BP 121/86 11/28/17 11:56 Pulse Ox 96 11/28/17 11:56 - Orders/Labs/Meds Orders: Active Orders 24 hr Category Date Time Status RT Aerosol Therapy [RC] ASDIRECTED Care 11/28/17 13:09 Active Chest 1V Frontal [CR] Stat Exams 11/28/17 11:53 Taken RT Acapella [RESPCARE] Urgent Oth 11/28/17 13:09 Active Labs: Laboratory Tests 11/28/17 11/28/17 Range/Units 12:00 12:00 WBC 6.7 (4.5-11.0) K/uL RBC 4.59 (4.30-5.90) M/uL Hgb 13.1 (12.0-15.0) g/dL Hct 41.5 (40.0-54.0) % MCV 90 (80-98) fL MCH 29 (27-31) pg MCHC 32 (32-36) % Plt Count 378 (150-400) K/uL Neut % (Auto) 78 H (36-66) % Lymph % (Auto) 14 L (24-44) % Hayes % (Auto) 8 H (2-6) % Eos % (Auto) 1 L (2-4) % Baso % (Auto) 0 (0-1) % Sodium 135 L (140-148) mmol/L Potassium 5.3 H (3.6-5.2) mmol/L Chloride 94 L (100-108) mmol/L Carbon Dioxide 38 H (21-32) mmol/L Anion Gap 8.3 (5.0-14.0) mmol/L BUN 9 (7-18) mg/dL Creatinine 0.4 L (0.8-1.3) mg/dL Est Cr Clr Drug Dosing 145.43 mL/min Estimated GFR (MDRD) > 60 (>60) Glucose 108 H (74-106) mg/dL Calcium 8.7 (8.5-10.1) mg/dL Total Bilirubin 0.8 D (0.2-1.0) mg/dL AST 70 H (15-37) U/L ALT 24 (12-78) U/L Alkaline Phosphatase 82 D (46-116) U/L Total Protein 7.1 (6.4-8.2) g/dL Albumin 3.0 L (3.4-5.0) g/dL Globulin 4.1 H (2.3-3.5) g/dL Albumin/Globulin Ratio 0.7 L (1.2-2.2) Meds: Medications Discontinued Medications Generic Name Dose Route Start Last Admin Trade Name Freq PRN Reason Stop Dose Admin Albuterol 2.5 mg 11/28/17 13:09 11/28/17 13:28 Proventil Neb Soln NEB 11/28/17 13:10 2.5 mg ONETIME ONE Administration Sodium Chloride 10 ml 11/28/17 13:11 11/28/17 13:28 Saline Flush FLUSH 11/28/17 13:12 10 ml 5XDAY ONE Administration - Re-Assessments/Exams Free Text/Narrative Re-Assessment/Exam: 11/28/17 16:15 CHEST XRAY DID NOT REVEAL A PNEUMONIA, hIS WBC IS NORMAL. hIS OTHER LAB WORK LOOKS GOOD. hE WAS SUCTIONED AND HAD A NEB AND HE CONTINUED TO FEEL LIKE HE HAD MUCOUS. hE WAS SUCTIONED A SECOND TIME AND HE WAS MUCH BETTER AFTER THAT. Departure - Departure Time of Disposition: 16:17 Disposition: Admitted As Inpatient 64 Condition: Poor Clinical Impression: ALS (amyotrophic lateral sclerosis), Difficulty clearing secretions - Discharge Information Referrals: Heena Santana MD [Primary Care Provider] - Forms: ED Department Discharge Care Plan Goals: ADMIT TO dR PAUL - My Orders Last 24 Hours: My Active Orders 11/28/17 11:53 Chest 1V Frontal [CR] Stat 11/28/17 13:09 RT Aerosol Therapy [RC] ASDIRECTED - Assessment/Plan Last 24 Hours: My Active Orders 11/28/17 11:53 Chest 1V Frontal [CR] Stat 11/28/17 13:09 RT Aerosol Therapy [RC] ASDIRECTED
--- NOTE | 2017-11-28 16:39 | PCM.HP ---
H&P History of Present Illness - General Date of Service: 11/28/17 Admit Problem/Dx: Admission Diagnosis/Problem Admission Diagnosis/Problem Amyotrophic lateral sclerosis Source of Information: Patient, Family, Old Records, Provider, RN Notes Reviewed History Limitations: Reports: Other (Very weak difficult to understand speech) - History of Present Illness Initial Comments - Free Text/Narative: Mr. Wisdom is a 57-year-old gentleman who is admitted through the emergency department for management of dehydration, progressive end-stage ALS, with chronic hypoxic and hypercapnic respiratory failure and severe difficulty in managing secretions. He has had ALS now for approximately 3-1/2 years and has experienced progressive decline. Over the past few weeks his started to have more and more difficulty in managing secretions because of poor swallowing and extremely weak cough. He is very uncomfortable because of secretion accumulation in the back of his throat and has been unable to clear the secretions. - Related Data Allergies/Adverse Reactions: Allergies Allergy/AdvReac Type Severity Reaction Status Date / Time No Known Allergies Allergy Verified 11/28/17 11:59 Home Medications: Home Meds LORazepam [LORazepam Intensol] 2.5 ml PO Q8H PRN 11/28/17 [History] Scopolamine [Transderm-Scop] 1 patch TOP Q72H 11/28/17 [History] Triamcinolone Acetonide [Triamcinolone Acetonide 0.1% Crm] 1 g TOP ASDIRECTED [History] Past Medical History HEENT History: Reports: None Cardiovascular History: Reports: None Respiratory History: Reports: None, Sleep Apnea, Other (See Below) Other Respiratory History: Pneumonia, respsiratory failure Gastrointestinal History: Reports: None Genitourinary History: Reports: None Musculoskeletal History: Reports: None Neurological History: Reports: Other (See Below) Other Neuro History: ALS Psychiatric History: Reports: Anxiety Endocrine/Metabolic History: Reports: None Hematologic History: Reports: None Immunologic History: Reports: None Oncologic (Cancer) History: Reports: None Dermatologic History: Reports: None, Decubitus Ulcer Other Dermatologic History: See Es JOLLY for coccyx wound - Infectious Disease History Infectious Disease History: Reports: None - Past Surgical History Head Surgeries/Procedures: Reports: None Social & Family History - Family History Family Medical History: Noncontributory - Tobacco Use Smoking Status *Q: Former Smoker Years of Tobacco use: 30 Packs/Tins Daily: 1 Used Tobacco, but Quit: No Second Hand Smoke Exposure: No - Caffeine Use Caffeine Use: Reports: Coffee - Recreational Drug Use Recreational Drug Use: No H&P Review of Systems - Review of Systems: Review Of Systems: See Below General: Reports: Weakness, Fatigue HEENT: Reports: Dysphasia. Denies: Post Nasal Drip, Sinus Congestion, Sore Throat Pulmonary: Reports: Shortness of Breath. Denies: Wheezing, Cough, Sputum, Hemoptysis Cardiovascular: Reports: Dyspnea on Exertion. Denies: Chest Pain, Palpitations , Orthopnea, PND, Edema, Lightheadedness Gastrointestinal: Reports: No Symptoms Genitourinary: Reports: No Symptoms Musculoskeletal: Reports: Other (Marked weakness secondary to ALS) Skin: Reports: Other (Decubitus ulcer present on admission) Psychiatric: Reports: No Symptoms Neurological: Reports: Weakness, Change in Speech, Other Hematologic/Lymphatic: Reports: No Symptoms Immunologic: Reports: No Symptoms (s) Exam - Exam Exam: See Below - Vital Signs Vital Signs: Last Vital Signs Temp 97.7 F 11/28/17 11:56 Pulse 85 11/28/17 11:56 Resp 20 11/28/17 11:56 BP 121/86 11/28/17 11:56 Pulse Ox 96 11/28/17 11:56 Weight: 114 lb - Exam Quality Assessment: Supplemental Oxygen, DVT Prophylaxis, Other (Weak and cachectic in appearance) General: Alert, Oriented, Cooperative, Moderate Distress HEENT: Conjunctiva Clear, Hearing Intact, Normal Nasal Septum, Posterior Pharynx Clear, Pupils Equal. No: Mucosa Moist & [place] Neck: Supple, Trachea Midline, +2 Carotid Pulse wo Bruit Lungs: Clear to Auscultation, Normal Respiratory Effort Cardiovascular: Regular Rate, Regular Rhythm, Normal S1, Normal S2. No: Systolic Murmur, Diastolic Murmur GI/Abdominal Exam: Soft, Non-Tender, No Organomegaly, No Distention Back Exam: Normal Inspection, Full Range of Motion Extremities: Non-Tender, No Pedal Edema Skin: Warm, Dry, Intact Neurological: Other (Marked weakness of upper extremities as well as muscles involving head and neck with marked difficulty in breathing and managing secretions) Neuro Extensive - Mental Status: Alert, Oriented x3, Normal Mood/Affect, Normal Cognition, Memory Intact - Patient Data Lab Results Last 24 hrs: Laboratory Results - last 24 hr 11/28/17 11/28/17 Range/Units 12:00 12:00 WBC 6.7 (4.5-11.0) K/uL RBC 4.59 (4.30-5.90) M/uL Hgb 13.1 (12.0-15.0) g/dL Hct 41.5 (40.0-54.0) % MCV 90 (80-98) fL MCH 29 (27-31) pg MCHC 32 (32-36) % Plt Count 378 (150-400) K/uL Neut % (Auto) 78 H (36-66) % Lymph % (Auto) 14 L (24-44) % Gregg % (Auto) 8 H (2-6) % Eos % (Auto) 1 L (2-4) % Baso % (Auto) 0 (0-1) % Sodium 135 L (140-148) mmol/L Potassium 5.3 H (3.6-5.2) mmol/L Chloride 94 L (100-108) mmol/L Carbon Dioxide 38 H (21-32) mmol/L Anion Gap 8.3 (5.0-14.0) mmol/L BUN 9 (7-18) mg/dL Creatinine 0.4 L (0.8-1.3) mg/dL Est Cr Clr Drug Dosing 145.43 mL/min Estimated GFR (MDRD) > 60 (>60) Glucose 108 H (74-106) mg/dL Calcium 8.7 (8.5-10.1) mg/dL Total Bilirubin 0.8 D (0.2-1.0) mg/dL AST 70 H (15-37) U/L ALT 24 (12-78) U/L Alkaline Phosphatase 82 D (46-116) U/L Total Protein 7.1 (6.4-8.2) g/dL Albumin 3.0 L (3.4-5.0) g/dL Globulin 4.1 H (2.3-3.5) g/dL Albumin/Globulin Ratio 0.7 L (1.2-2.2) Result Diagrams: 11/28/17 12:00 11/28/17 12:00 *Q Meaningful Use (ADM) - VTE Risk Assess *Q Each Risk Factor Represents 1 Point: Age 41 - 59 years, Other Risk Factor (ALS with marked difficulty in movement) Total Score 1 Point Risk Factors: 2 Each Risk Factor Represents 2 Points: None Total Score 2 Point Risk Factors: 0 Each Risk Factor Represents 3 Points: None Total Score 3 Point Risk Factors: 0 Each Risk Factor Represents 5 Points: None Total Score 5 Point Risk Factors: 0 Venous Thromboembolism Risk Factor Score *Q: 2 Problem List Initiated/Reviewed/Updated: Yes Orders Last 24hrs: Active Orders 24 hr Category Date Time Status Patient Status Manage Transfer [TRANSFER] Routine ADT 11/28/17 16:14 Active RT Aerosol Therapy [RC] ASDIRECTED Care 11/28/17 13:09 Active Chest 1V Frontal [CR] Stat Exams 11/28/17 11:53 Taken RT Acapella [RESPCARE] Urgent Oth 11/28/17 13:09 Active Resuscitation Status Routine Resus Stat 11/28/17 16:23 Ordered Assessment/Plan Comment:: ASSESSMENT AND PLAN END-STAGE ALS WITH MARKED DIFFICULTY IN MANAGING SECRETIONS-progressive difficulty over the past few weeks in managing secretions secondary to extremely weak cough and marked difficulty with swallowing. Accumulated secretions at the back of his throat making him very uncomfortable and causing respiratory distress. -IV fluids for hydration -Encourage intake of oral liquids -Clear Ensure 4 times daily -Frequent suctioning as needed -Hospice consult and admission after discharge CHRONIC HYPOXIC AND HYPERCAPNIC RESPIRATORY FAILURE -Use of his home BiPAP machine while in the hospital -Supplemental oxygen as needed -Nebulized albuterol and duo nebs DECUBITUS ULCER-present on admission -Continue outpatient management -[facility] PALLIATIVE CARE-he does not want to consider feeding tube, tracheostomy, or ventilator management MAINTENANCE ISSUES -DVT prophylaxis; Lovenox 40 mg subcutaneous daily -GI prophylaxis; not indicated -Calderon catheter; not indicated -Nutrition; pured diet, nutritional supplement 4 times daily -Nicotine dependence; not indicated CODE STATUS-DNR/DNI ADMISSION STATUS-patient will be admitted to inpatient status, expect at least a 2 night hospital stay for evaluation and management of problems as outlined above. At the time of this admission I do not reasonably expected evaluation and management of this problem will require more than a 96 hour hospital stay. DISPOSITION-anticipate discharge to home after the hospital stay. PRIMARY CARE PROVIDER-Dr. Mccall
[2017-11-28] MEDS ORDERED: Triamcinolone Acetonide 0.1% Crm 15 GM Tube TOP SCH (17:14)
[2017-11-28] MEDS ORDERED: Albuterol 0.083% 2.5 MG/3 ML Neb Soln NEB PRN (17:14)
[2017-11-28] MEDS ORDERED: Ondansetron 4 MG/2 ML SDV IV PRN (17:14)
[2017-11-28] MEDS ORDERED: Acetaminophen 325 MG Tab PO PRN (17:14)
[2017-11-28] MEDS: LORazepam ORAL Concentrate 1MG/0.5ML U/D PO PRN ×2 (17:51→23:22)
[2017-11-28] MEDS: Enoxaparin 40 MG/0.4 ML Syringe SUBCUT SCH (17:57)
[2017-11-28] MEDS ORDERED: Scopolamine 1.5 MG Transdermal Patch TOP SCH (18:00)
[2017-11-28] MEDS: Sodium Chloride 0.9% 1,000 ML IV SCH (20:00)
[2017-11-28] MEDS: Albuterol/Ipratropium 3.0-0.5 MG/3 ML Neb Soln NEB SCH (23:07)
[2017-11-29] MEDS: Sodium Chloride 0.9% 1,000 ML IV SCH ×3 (04:05→20:25)
[2017-11-29] MEDS: Albuterol/Ipratropium 3.0-0.5 MG/3 ML Neb Soln NEB SCH ×4 (05:38→21:54)
[2017-11-29] MEDS: LORazepam ORAL Concentrate 1MG/0.5ML U/D PO PRN ×3 (08:46→22:01)
[2017-11-29] MEDS ORDERED: Scopolamine 1.5 MG Transdermal Patch TOP SCH (09:00)
[2017-11-29] MEDS: VERIFY SCOP PATCH TOP SCH (11:19)
[2017-11-29] MEDS: Morphine 10 MG/0.5 ML Oral Syringe PO PRN ×2 (14:10→21:49)
--- NOTE | 2017-11-29 16:05 | PCM.PN ---
- General Info Date of Service: 11/29/17 Subjective Update: Mr. Wisdom has been much more comfortable since admission, he has been using the lorazepam on a regular basis and feels that this has significantly helped with his anxiety. He was seen and evaluated by hospice staff earlier today, plan is for discharge to home with hospice services tomorrow. - Review of Systems Pulmonary: Reports: No Symptoms Cardiovascular: Reports: No Symptoms Gastrointestinal: Reports: No Symptoms - Patient Data Vitals - Most Recent: Last Vital Signs Temp 97.4 F 11/29/17 15:28 Pulse 99 11/29/17 15:28 Resp 16 11/29/17 15:28 BP 118/72 11/29/17 15:28 Pulse Ox 96 11/29/17 15:28 Weight - Most Recent: 121 lb I&O - Last 24 Hours: Intake & Output 11/29/17 11/29/17 11/29/17 06:59 14:59 22:59 Intake Total 1366 240 Output Total 1400 Balance 1366 -1160 Med Orders - Current: Current Medications Acetaminophen (Tylenol) 650 mg PO Q4H PRN PRN Reason: Pain (Mild 1-3)/fever Albuterol (Proventil Neb Soln) 2.5 mg NEB Q4H PRN PRN Reason: Shortness Of Breath/wheezing Albuterol/Ipratropium (Duoneb 3.0-0.5 Mg/3 Ml) 3 ml NEB QIDRT [facility] Last Admin: 11/29/17 15:01 Dose: 3 ml Enoxaparin Sodium (Lovenox) 40 mg SUBCUT DAILY@1800 [facility] Last Admin: 11/28/17 17:57 Dose: 40 mg Sodium Chloride (Normal Saline) 1,000 mls @ 125 mls/hr IV ASDIRECTED [facility] Last Admin: 11/29/17 12:21 Dose: 125 mls/hr Lorazepam (Ativan Oral Concentrate 1mg/0.5 Ml U/D) 0.5 mg PO Q2H PRN PRN Reason: Anxiety Last Admin: 11/29/17 08:46 Dose: 0.5 mg Morphine Sulfate (Morphine 10 Mg/0.5 Ml Oral Syringe) 5 mg PO Q1H PRN PRN Reason: Dyspnea Last Admin: 11/29/17 14:10 Dose: 5 mg Verify Scop Patch 0 each TOP DAILY [facility] Last Admin: 11/29/17 11:19 Dose: Not Given Ondansetron HCl (Zofran) 4 mg IV Q4H PRN PRN Reason: Nausea/Vomiting Scopolamine (Transderm-Scop) 1.5 mg TOP Q72H [facility] Last Admin: 11/29/17 11:19 Dose: 1.5 mg Triamcinolone Acetonide (Triamcinolone Acetonide 0.1% Crm) 0 gm TOP ASDIRECTED [facility] Discontinued Medications Albuterol (Proventil Neb Soln) 2.5 mg NEB ONETIME ONE Stop: 11/28/17 13:10 Last Admin: 11/28/17 13:28 Dose: 2.5 mg Albuterol/Ipratropium (Duoneb 3.0-0.5 Mg/3 Ml) 3 ml NEB QID [facility] Last Admin: 11/29/17 05:38 Dose: Not Given Scopolamine (Transderm-Scop) 1.5 mg TOP Q72H [facility] Last Admin: 11/28/17 17:59 Dose: Not Given Sodium Chloride (Saline Flush) 10 ml FLUSH 5XDAY ONE Stop: 11/28/17 13:12 Last Admin: 11/28/17 13:28 Dose: 10 ml - Exam Quality Assessment: Supplemental Oxygen, DVT Prophylaxis General: Alert, Oriented, Cooperative, Mild Distress Lungs: Clear to Auscultation, Normal Respiratory Effort Cardiovascular: Regular Rate, Regular Rhythm, No Murmurs GI/Abdominal Exam: Soft, Non-Tender, No Organomegaly, No Distention Extremities: Non-Tender, No Pedal Edema Skin: Warm, Dry - Problem List Review Problem List Initiated/Reviewed/Updated: Yes - My Orders Last 24 Hours: My Active Orders 11/28/17 16:23 Resuscitation Status Routine 11/28/17 17:14 Patient Status [ADT] Routine Communication Order [RC] ASDIRECTED Height and Weight [RC] 0500 Intake and Output [RC] QSHIFT Notify Provider Vital Signs [RC] ASDIRECTED Oxygen Therapy [RC] PRN RT Aerosol Therapy [RC] ASDIRECTED Up With Assistance [RC] ASDIRECTED Up to Chair [RC] QID VTE/DVT Education [RC] Per Unit Routine Vital Signs [RC] Q4H Acetaminophen [Tylenol] 650 mg PO Q4H PRN Albuterol [Proventil Neb Soln] 2.5 mg NEB Q4H PRN Morphine [Morphine 10 MG/0.5 ML Oral Syringe] 5 mg PO Q1H PRN Ondansetron [Zofran] 4 mg IV Q4H PRN Sodium Chloride 0.9% [Normal Saline] 1,000 ml IV ASDIRECTED Triamcinolone Acetonide [Triamcinolone Acetonide 0.1% Crm] 0 gm TOP ASDIRECTED 11/28/17 18:00 Enoxaparin [Lovenox] 40 mg SUBCUT DAILY@1800 LORazepam [Ativan ORAL Concentrate 1MG/0.5 ML U/D] 0.5 mg PO Q2H PRN 11/28/17 Dinner Pureed Diet [DIET] 11/29/17 09:00 Consult to Hospice [CONS] Routine Non-Formulary Medication [NF Drug] 0 each TOP DAILY Scopolamine [Transderm-Scop] 1.5 mg TOP Q72H 11/29/17 11:00 Albuterol/Ipratropium [DuoNeb 3.0-0.5 MG/3 ML] 3 ml NEB QIDRT - Plan Plan:: ASSESSMENT AND PLAN END-STAGE ALS WITH MARKED DIFFICULTY IN MANAGING SECRETIONS-progressive difficulty over the past few weeks in managing secretions secondary to extremely weak cough and marked difficulty with swallowing. Accumulated secretions at the back of his throat making him very uncomfortable. symptomatically improved with use of regular lorazepam -saline lock IV -Lorazepam 0.5 mg buccal every 2 hours as needed for anxiety -Feeding sulfate 5 mg buccal every hour as needed for pain and/or dyspnea -Encourage intake of oral liquids -Clear Ensure 4 times daily -Frequent suctioning as needed -Hospice consult and admission after discharge CHRONIC HYPOXIC AND HYPERCAPNIC RESPIRATORY FAILURE -Use of his home BiPAP machine while in the hospital -Supplemental oxygen as needed -Nebulized albuterol and duo nebs DECUBITUS ULCER-present on admission -Continue outpatient management -[facility] PALLIATIVE CARE-he does not want to consider feeding tube, tracheostomy, or ventilator management MAINTENANCE ISSUES -DVT prophylaxis; Lovenox 40 mg subcutaneous daily -GI prophylaxis; not indicated -Calderon catheter; not indicated -Nutrition; pured diet, nutritional supplement 4 times daily -Nicotine dependence; not indicated CODE STATUS-DNR/DNI ADMISSION STATUS-patient will be admitted to inpatient status, expect at least a 2 night hospital stay for evaluation and management of problems as outlined above. At the time of this admission I do not reasonably expected evaluation and management of this problem will require more than a 96 hour hospital stay. DISPOSITION-anticipate discharge to home after the hospital stay. PRIMARY CARE PROVIDER-Dr. Weiner
--- NOTE | 2017-11-29 16:15 | PCM.DCSUM1 ---
Discharge Summary - Hospital Course Brief History: Mr. Wisdom is a 57-year-old gentleman who was admitted through the emergency department for further evaluation and management of end-stage ALS, with difficulty in managing secretions. - Discharge Data Discharge Date: 11/30/17 Discharge Disposition: DC/Tfer to Hospice - Home 48 Condition: Poor - Discharge Diagnosis/Problem(s) (1) Chronic respiratory failure with hypoxia and hypercapnia SNOMED Code(s): 87527998, 198207411 ICD Code: J96.11 - CHRONIC RESPIRATORY FAILURE WITH HYPOXIA; J96.12 - CHRONIC RESPIRATORY FAILURE WITH HYPERCAPNIA Status: Acute Current Visit: Yes (2) Amyotrophic lateral sclerosis (ALS) SNOMED Code(s): 55255530 ICD Code: G12.21 - AMYOTROPHIC LATERAL SCLEROSIS Status: Acute Current Visit: Yes (3) Difficulty clearing secretions SNOMED Code(s): 379725181 ICD Code: [id number] - Status: Acute Current Visit: Yes (4) Palliative care status SNOMED Code(s): 548161721 ICD Code: Z51.5 - ENCOUNTER FOR PALLIATIVE CARE Status: Acute Current Visit: No - Patient Summary/Data Consults: Consultations 11/29/17 09:00 Consult to Hospice [CONS] Routine Comment: Physician Instructions: Reason for Consult: End-stage ALS Hospital Course: Mr. Wisdom is a 57-year-old gentleman who is admitted through the emergency department for management of dehydration, progressive end-stage ALS, with chronic hypoxic and hypercapnic respiratory failure and severe difficulty in managing secretions. He has had ALS now for approximately 3-1/2 years and has experienced progressive decline. Over the past few weeks his started to have more and more difficulty in managing secretions because of poor swallowing and extremely weak cough. He is very uncomfortable because of secretion accumulation in the back of his throat and has been unable to clear the secretions. On admission he was given IV fluids for hydration and dosing of his lorazepam was changed to 0.5 mg buccal every 2 hours as needed for anxiety. With this change in medication he felt much more comfortable and was much less anxious about his secretions. He was also started on morphine sulfate 5 mg every hour as needed for dyspnea and/or pain. On the day prior to discharge he was seen and evaluated by hospice staff and felt to be appropriate for admission after discharge. He will be provided with a home suction machine so that he is able to better clear secretions with assistance of his . Prior to discharge he was seen and evaluated by Dr. Garcia for management of his decubitus ulcer which was present on admission. He will be discharged with a home care mattress to be placed in his bed for management of the ulcer. He will also be discharged home with prescriptions through hospice for the lorazepam and morphine. He is encouraged to try and increase his fluid intake and I have suggested that he try to take in 8 ounces of clear Ensure 4 times daily. Activity will be as tolerated and he will remain on his pured diet. - Patient Instructions Diet, Other: pureed diet,clear Ensure 4 times daily Activity: As Tolerated Other/Special Instructions: discharge to home with hospice admission after discharge. Air mattress on bed and suction unit available at home. Clear ensure 4 times daily. - Discharge Plan Prescriptions/Med Rec: LORazepam [Ativan ORAL Concentrate 1MG/0.5 ML U/D] 0.5 mg BUCCAL Q2H PRN #15 ml PRN Reason: Anxiety Morphine [Morphine 10 MG/0.5 ML Oral Syringe] 5 mg PO Q1H PRN #15 ml PRN Reason: Dyspnea Home Medications: Home Meds Scopolamine [Transderm-Scop] 1 patch TOP Q72H 11/28/17 [History] Triamcinolone Acetonide [Triamcinolone Acetonide 0.1% Crm] 1 g TOP ASDIRECTED [History] LORazepam [Ativan ORAL Concentrate 1MG/0.5 ML U/D] 0.5 mg BUCCAL Q2H PRN #15 ml 11/29/17 [Rx] Morphine [Morphine 10 MG/0.5 ML Oral Syringe] 5 mg PO Q1H PRN #15 ml 11/29/17 [ Rx] Referrals: Heena Santana MD [Primary Care Provider] - - Discharge Summary/Plan Comment DC Time >30 min.: No - Patient Data Vitals - Most Recent: Last Vital Signs Temp 97.4 F 11/29/17 15:28 Pulse 99 11/29/17 15:28 Resp 16 11/29/17 15:28 BP 118/72 11/29/17 15:28 Pulse Ox 96 11/29/17 15:28 Weight - Most Recent: 121 lb I&O - Last 24 hours: Intake & Output 11/29/17 11/29/17 11/29/17 06:59 14:59 22:59 Intake Total 1366 240 Output Total 1400 Balance 1366 -1160 Med Orders - Current: Current Medications Acetaminophen (Tylenol) 650 mg PO Q4H PRN PRN Reason: Pain (Mild 1-3)/fever Albuterol (Proventil Neb Soln) 2.5 mg NEB Q4H PRN PRN Reason: Shortness Of Breath/wheezing Albuterol/Ipratropium (Duoneb 3.0-0.5 Mg/3 Ml) 3 ml NEB QIDRT [facility] Last Admin: 11/29/17 15:01 Dose: 3 ml Enoxaparin Sodium (Lovenox) 40 mg SUBCUT DAILY@1800 [facility] Last Admin: 11/28/17 17:57 Dose: 40 mg Sodium Chloride (Normal Saline) 1,000 mls @ 125 mls/hr IV ASDIRECTED [facility] Last Admin: 11/29/17 12:21 Dose: 125 mls/hr Lorazepam (Ativan Oral Concentrate 1mg/0.5 Ml U/D) 0.5 mg PO Q2H PRN PRN Reason: Anxiety Last Admin: 11/29/17 08:46 Dose: 0.5 mg Morphine Sulfate (Morphine 10 Mg/0.5 Ml Oral Syringe) 5 mg PO Q1H PRN PRN Reason: Dyspnea Last Admin: 11/29/17 14:10 Dose: 5 mg Verify Scop Patch 0 each TOP DAILY [facility] Last Admin: 11/29/17 11:19 Dose: Not Given Ondansetron HCl (Zofran) 4 mg IV Q4H PRN PRN Reason: Nausea/Vomiting Scopolamine (Transderm-Scop) 1.5 mg TOP Q72H [facility] Last Admin: 11/29/17 11:19 Dose: 1.5 mg Triamcinolone Acetonide (Triamcinolone Acetonide 0.1% Crm) 0 gm TOP ASDIRECTED [facility] Discontinued Medications Albuterol (Proventil Neb Soln) 2.5 mg NEB ONETIME ONE Stop: 11/28/17 13:10 Last Admin: 11/28/17 13:28 Dose: 2.5 mg Albuterol/Ipratropium (Duoneb 3.0-0.5 Mg/3 Ml) 3 ml NEB QID [facility] Last Admin: 11/29/17 05:38 Dose: Not Given Scopolamine (Transderm-Scop) 1.5 mg TOP Q72H [facility] Last Admin: 11/28/17 17:59 Dose: Not Given Sodium Chloride (Saline Flush) 10 ml FLUSH 5XDAY ONE Stop: 11/28/17 13:12 Last Admin: 11/28/17 13:28 Dose: 10 ml - Exam Quality Assessment: Reports: DVT Prophylaxis General: Reports: Alert, Oriented, Cooperative, Mild Distress Lungs: Reports: Clear to Auscultation, Normal Respiratory Effort Cardiovascular: Reports: Regular Rate, Regular Rhythm GI/Abdominal Exam: Soft, Non-Tender, No Organomegaly, No Distention
[2017-11-29] MEDS: Enoxaparin 40 MG/0.4 ML Syringe SUBCUT SCH (17:40)
[2017-11-30] MEDS: Morphine 10 MG/0.5 ML Oral Syringe PO PRN ×2 (04:22→08:23)
[2017-11-30] MEDS: LORazepam ORAL Concentrate 1MG/0.5ML U/D PO PRN ×2 (04:22→08:23)
[2017-11-30] MEDS: Sodium Chloride 0.9% 1,000 ML IV SCH (04:28)
[2017-11-30] MEDS: Albuterol/Ipratropium 3.0-0.5 MG/3 ML Neb Soln NEB SCH ×2 (07:22→11:31)
[2017-11-30 07:45] VITALS: BP 110/66
--- NOTE | 2017-11-30 08:51 | CR ---
Chest 1V Frontal INDICATION: alot of mucous sob. COMPARISON: 03/18/2017 FINDINGS: AP portable chest. Elevation left hemidiaphragm and left basilar atelectasis or infiltrate new since the prior study. Ri ght lung clear. Heart size normal. Recommend follow-up exam to confirm clearing.
[2017-11-30] MEDS ORDERED: Scopolamine 1.5 MG Transdermal Patch TOP SCH (09:00)
[2017-11-30] MEDS: VERIFY SCOP PATCH TOP SCH (09:05)
== END 2017-11-30 11:50 | disposition hospice, home (50) | DRG 57 ==
LOC: JP.ED 11:41 → JP.MS 16:14
PROVIDERS: ADMIT Hospitalist; ATTEND Internal Medicine
DX: G12.21 Amyotrophic lateral sclerosis (principal); J96.12 Chronic respiratory failure with hypercapnia; J96.11 Chronic respiratory failure with hypoxia; E86.0 Dehydration; Z66 Do not resuscitate; R13.19 Other dysphagia; Z51.5 Encounter for palliative care; Z87.891 Personal history of nicotine dependence; R13.10 Dysphagia, unspecified; L89.159 Pressure ulcer of sacral region, unspecified stage; F41.9 Anxiety disorder, unspecified
CPT/HCPCS: 36415; 71045 ×2; 80053; 85025; 94640; 99285; J7050; A9270-GY; J1650; J7040; J7620